=== PATIENT | female | born 1940 | race Asian ===

== ENCOUNTER 2017-05-15 07:40 | Day surgery (SDC) | payer MEDICARE, OTHER ==
[~2017-05-15] VITALS: Ht 147.3 cm; Wt 37.2 kg
[2017-05-15 08:27] VITALS: BP 154/88
[2017-05-15 13:38] VITALS: BP 109/71
== END 2017-05-15 12:35 | disposition home or self-care (01) ==
LOC: GI 07:40 → OR 09:00 → GI 09:30
PROVIDERS: Internal Medicine
PROC: 0DJD8ZZ Inspection of Lower Intestinal Tract, Via Natural or Artificial Opening Endoscopic (ICD-10-PCS; principal; 2017-05-15 09:30)
DX: Z12.11 Encounter for screening for malignant neoplasm of colon (principal); K59.09 Other constipation; K57.30 Diverticulosis of large intestine without perforation or abscess without bleeding; K64.0 First degree hemorrhoids; E07.9 Disorder of thyroid, unspecified; I10 Essential (primary) hypertension; E78.5 Hyperlipidemia, unspecified; Z68.24 Body mass index [BMI] 24.0-24.9, adult
CPT/HCPCS: 45378; J1200; J1610; J2250; J2310; J3010; J3490